=== PATIENT | male | born 1970 | race Caucasian/White ===

== ENCOUNTER 2020-07-14 14:30 | Outpatient (CLI) | payer BC | END 2020-07-14 14:31 | disposition critical access hospital (66) | LOC: EMS 14:30 | PROVIDERS: ATTEND Emergency Medicine | DX: R06.02 Shortness of breath (principal); R53.83 Other fatigue | CPT/HCPCS: A0425; A0427 ==

== ENCOUNTER 2020-07-14 14:52 | Emergency (ER) | payer BC ==
--- NOTE | 2020-07-14 15:15 | ED Physician Documentation ---
PD HPI DYSPNEA - Stated complaint Stated Complaint: SOA - Chief complaint Chief Complaint: Resp - History obtained from History obtained from: Patient, EMS - History of Present Illness Timing - onset: Today Timing - onset during: Exertion Timing - duration: Minutes Timing - details: Abrupt onset, Now resolved Inciting event(s): Exercise Improved by: Rest, Sitting up Worsened by: Exertion Associated symptoms: Diaphoresis. No: Fever, Cough, Hemoptysis, Wheezing, Chest pain / discomfort, Palpitations, Bilateral edema, Unilateral edema Similar symptoms before: Has not had sx before Recently seen: Not recently seen - Additional information Additional information: 49 y/o male was outside cutting a 14 inch log with a chainsaw and when the chainsaw broke the patient took the chain and used the chain with both of his hands to cut through the log. He got to within an inch of finishing when he developed acute shortness of breath. He indicates he was diaphoretic and working very hard to cut this log. He has never had this happen to him previously. He feels like he is breathing normally now but feels weak. PD PAST MEDICAL HISTORY - Past Medical History Past Medical History: Yes Cardiovascular: Hypertension, High cholesterol Respiratory: None Neuro: None Endocrine/Autoimmune: None GI: None : None HEENT: Chronic vision loss Psych: None Musculoskeletal: None Derm: None - Past Surgical History Past Surgical History: No - Present Medications Home Medications: Ambulatory Orders Medication Instructions Recorded Confirmed traMADol [Ultram] 50 - 100 mg PO Q6H PRN #20 tab 07/14/20 - Allergies Allergies/Adverse Reactions: Allergies Allergy/AdvReac Type Severity Reaction Status Date / Time No Known Drug Allergies Allergy Verified 07/14/20 15:02 - Social History Does the pt smoke?: No Smoking Status: Never smoker Does the pt drink ETOH?: No Does the pt have substance abuse?: No - Immunizations Immunizations are current?: Yes - POLST Patient has POLST: No PD ED PE NORMAL - Vitals Vital signs reviewed: Yes (hypertensive ) - General General: Alert and oriented X 3, No acute distress, Well developed/nourished, Other (legs are shaking ) - HEENT HEENT: Atraumatic, PERRL, EOMI - Neck Neck: Supple, no meningeal sign, No bony TTP - Cardiac Cardiac: RRR, No murmur - Respiratory Respiratory: No respiratory distress, Other (diminished breath sounds. 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, No motor deficit, No sensory deficit, Normal speech Eye Opening: Spontaneous Motor: Obeys Commands Verbal: Oriented GCS Score: 15 - Psych Psych: Normal mood, Normal affect Results - Vitals Vitals: Vital Signs - 24 hr 07/14/20 07/14/20 14:50 17:00 Temperature 36.8 C Heart Rate 98 87 Respiratory 20 18 Rate Blood Pressure 142/81 H 145/84 H O2 Saturation 100 95 Oxygen O2 Source Room air - EKG (time done) 1456 Rate: Rate (enter#) (92) Rhythm: NSR Ischemia: Normal ST segments, Other (flat T waves inferior) Compare to prior EKG: Old EKG unavailable Computer interpretation: Disagree with computer (I see a sinus rythm with baseline atifact from the shaking) - Labs Labs: Laboratory Tests 07/14/20 07/14/20 07/14/20 15:34 15:34 15:34 WBC 12.8 H RBC 5.11 Hgb 15.6 Hct 44.4 MCV 86.9 MCH 30.5 MCHC 35.1 RDW 11.9 L Plt Count 233 MPV 10.0 Neut # (Auto) 10.9 H Lymph # (Auto) 1.0 L [place] # (Auto) 0.8 Eos # (Auto) 0.0 Baso # (Auto) 0.0 Absolute Nucleated RBC 0.00 Nucleated RBC % 0.0 Sodium 137 Potassium 3.4 L Chloride 100 L Carbon Dioxide 20 L Anion Gap 17.0 H BUN 17 Creatinine 1.0 Estimated GFR (MDRD) 79 L Glucose 133 H Lactic Acid Calcium 9.2 Total Bilirubin 0.7 AST 20 ALT 20 Alkaline Phosphatase 71 Total Creatine Kinase 97 CK-MB (CK-2) 2.4 B-Natriuretic Peptide Total Protein 7.8 Albumin 4.5 Globulin 3.3 Albumin/Globulin Ratio 1.4 Lipase 28 Urine Color Urine Clarity Urine pH Ur Specific [place] Urine Protein Urine Glucose (UA) Urine Ketones Urine Occult Blood Urine Nitrite Urine Bilirubin Urine Urobilinogen Ur Leukocyte Esterase Ur Microscopic Review Urine Culture Comments 07/14/20 07/14/20 07/14/20 15:34 15:34 15:45 WBC RBC Hgb Hct MCV MCH MCHC RDW Plt Count MPV Neut # (Auto) Lymph # (Auto) [place] # (Auto) Eos # (Auto) Baso # (Auto) Absolute Nucleated RBC Nucleated RBC % Sodium Potassium Chloride Carbon Dioxide Anion Gap BUN Creatinine Estimated GFR (MDRD) Glucose Lactic Acid 5.2 H* Calcium Total Bilirubin AST ALT Alkaline Phosphatase Total Creatine Kinase CK-MB (CK-2) B-Natriuretic Peptide 16 Total Protein Albumin Globulin Albumin/Globulin Ratio Lipase Urine Color YELLOW Urine Clarity CLEAR Urine pH 8.0 H Ur Specific [place] 1.020 Urine Protein NEGATIVE Urine Glucose (UA) NEGATIVE Urine Ketones 40 H Urine Occult Blood NEGATIVE Urine Nitrite NEGATIVE Urine Bilirubin NEGATIVE Urine Urobilinogen 0.2 (NORMAL) Ur Leukocyte Esterase NEGATIVE Ur Microscopic Review NOT INDICATED Urine Culture Comments NOT INDICATED - Rads (name of study) chest Radiology: Prelim report reviewed (Impression: No acute cardiopulmonary pathology.), EMP read indepedently, See rad report Procedures - IVC sono (time) 1505 Bedside IVC sono: IVC measures (cm) (0.78), IVC collapsed c insp (cm) (complete), Dehydration (est 2liter deficit) PD MEDICAL DECISION MAKING - ED course Complexity details: reviewed old records, reviewed results, re-evaluated patient, considered differential, d/w patient ED course: 49-year-old male gives her dramatic story of working very hard very physical exertion [place] with a chain to cut through a piece of wood. He was very diaphoretic while doing this and became asked extremely short of breath here in the emergency department he has normal-appearing vital signs and is saturating 100% he is breathing well now has diminished breath sounds and on interrogation of the inferior vena cava he is dehydrated. I felt the patient may have had a brief episode of flash pulmonary edema as a cause of his acute dyspnea and I look for evidence of failure. I did not find this what I found instead was a reduced volume. He is administered IV saline and CK, trop and BNP are all checked. The cardiac markers are negative but the lactate is 5.2 and he is administered further saline. He feels improved. I s uspect the lactate represents anaerobic metabolism and have warned the patient about muscle pains to come in the next several days. Departure - Departure Disposition: 01 Home, Self Care Clinical Impression: Overexertion and strenuous and repetitive movements or loads Qualifiers: Encounter type: initial encounter Qualified Code(s): X50.0XXA - Overexertion from strenuous movement or load, initial encounter Condition: Stable Instructions: ED Muscle Aching Follow-Up: LYDIA HYDE MD [Primary Care Provider] - Prescriptions: traMADol [Ultram] 50 - 100 mg PO Q6H PRN #20 tab PRN Reason: Pain
[2020-07-14] MEDS ORDERED: SODIUM CHLORIDE 0.9% 1,000 ML IV STA ×2 (15:20→16:32)
--- NOTE | 2020-07-14 15:30 | XRAY Report ---
PROCEDURE: Chest 1 View X-Ray INDICATIONS: chest pain TECHNIQUE: One view of the chest was acquired. COMPARISON: None FINDINGS: Surgical changes and devices: None. Lungs and pleura: No pleural effusions or pneumothorax. Lungs are clear. Mediastinum: Mediastinal contours appear normal. Heart size is normal. Bones and chest wall: No suspicious bony lesions. Overlying soft tissues appear unremarkable. IMPRESSION: No acute cardiopulmonary pathology. Reviewed by: Mart Minaya MD on 07/14/2020 3:29 PM PST Approved by: Mart Minaya MD on 07/14/2020 3:29 PM PST Station ID: [id number]
[2020-07-14 15:41] LABS: BASOPHILS % (AUTO) 0.2 %; EOSINOPHILS % (AUTO) 0.2 %; HGB - HEMOGLOBIN 15.6 g/dL (14.0-18.0); LYMPHOCYTES % (AUTO) 8.1 %; MEAN CORPUSCULAR HEMOGLOBIN 30.5 pg (27.0-31.0); MEAN CORPUSCULAR HGB CONC 35.1 g/dL (32.0-36.0); MEAN CORPUSCULAR VOLUME 86.9 fL (80.0-94.0); MONOCYTES # (AUTO) 0.8 10^3/uL (0.0-1.0); MONOCYTES % (AUTO) 6.1 %; NEUTROPHILS # (AUTO) 10.9 10^3/uL (1.5-6.6); PLT - PLATELET COUNT 233 10^3/uL (130-450); RED BLOOD COUNT 5.11 10^6/uL (4.70-6.10); RED CELL DISTRIBUTION WIDTH 11.9 % (12.0-15.0); WHITE BLOOD COUNT 12.8 x10^3/uL (4.8-10.8)
[2020-07-14 15:52] LABS: BILIRUBIN,URINE NEGATIVE (NEGATIVE); CLARITY,URINE CLEAR (CLEAR); GLUCOSE, URINE (UA) NEGATIVE (NEGATIVE); KETONES,URINE (UA) 40 mg/dL (NEGATIVE); LEUKOCYTE ESTERASE, URINE NEGATIVE (NEGATIVE); NITRITE,URINE NEGATIVE (NEGATIVE); OCCULT BLOOD,URINE NEGATIVE (NEGATIVE); PROTEIN,URINE NEGATIVE (NEGATIVE); UROBILINOGEN,URINE 0.2 (NORMAL) E.U./dL (NORMAL)
[2020-07-14 15:57] LABS: ALBUMIN 4.5 g/dL (3.2-5.5); ALBUMIN/GLOBULIN RATIO 1.4 (1.0-2.2); BILIRUBIN,TOTAL 0.7 mg/dL (0.2-1.0); CALCIUM 9.2 mg/dL (8.5-10.3); TOTAL PROTEIN 7.8 g/dL (6.7-8.2)
[2020-07-14] MEDS ORDERED: POTASSIUM CHLORIDE 20 MEQ TABLET PO STA (16:32)
[2020-07-14 17:31] VITALS: BP 160/90
== END 2020-07-14 17:28 | disposition home or self-care (01) ==
LOC: ED 14:52
DX: T73.3XXA Exhaustion due to excessive exertion, initial encounter (principal); X50.0XXA Overexertion from strenuous movement or load, initial encounter; E86.0 Dehydration
CPT/HCPCS: 36415; 71045; 80053; 81003; 82550; 82553; 83605; 83690; 83880; 85025; 93005; 99284; A9270; 81001; 87086